=== PATIENT | female | born 1950 | race Caucasian/White ===

== ENCOUNTER 2020-07-07 14:42 | Observation (INO) | payer MEDICARE, OTHER ==
[~2020-07-07 14:42] MED LIST: Iopamidol-370 76% 500 ML 1 ML ONE
--- NOTE | 2020-07-07 15:22 | CT ---
CT OF THE BRAIN WITHOUT CONTRAST: 07/07/20 INDICATION: 69-year-old female with dizziness. COMPARISON: Prior CT of the brain dated 03/09/17. FINDINGS: There has been interval chronic right MCA distribution infarct with encephalomalacia involving portio ns of the right frontal lobe, right insular cortex, and right temporal lobe with ex vacuo dilatation of the anterior horn of the right lateral ventricle. No acute infarct, hemorrhage, or hydrocephalus i s present. Septum pellucidum and third ventricle are midline. There is mild generalized cerebral and cerebellar atrophy. There is partial fusion involving the right mastoid air cells. The visualized par anasal sinuses are clear. The skull is intact. IMPRESSION: 1. Interval right MCA distribution infarct with encephalomalacia. 2. No acute intracranial abnormality. 3. Mild generalized cerebral and cerebellar atrophy. POS: [facility]
[2020-07-07 15:48] LABS: #Basophils 0.1 thou/uL (0.0-0.2); #Eosinphils 0.1 thou/uL (0.0-0.7); #Lymphocytes 1.7 thou/uL (1.20-3.40); #Monocytes 0.9 thou/uL (0.11-0.59); #Neutrophils 5.1 thou/uL (1.40-6.50); %Basophils 0.8 % (0.0-1.0); %Eosinophils 1.2 % (0.0-10.0); %Lymphocytes 22.1 % (21.0-51.0); %Monocytes 10.9 % (0.0-10.0); Hemoglobin 13.3 g/dL (12.0-16.0); Mean Corpuscular HGB CONC 32.2 g/dL (32.0-36.0); Mean Corpuscular Hemoglobin 27.2 pg (27.0-31.0); Mean Corpuscular Volume 84.5 fL (78.0-98.0); Mean Platelet Volume 6.8 fL (7.4-10.4); Platelet Count 332 thou/uL (130-400); RBC Distribution Width 13.8 % (11.5-14.5); Red Blood Cell (RBC) Count 4.87 mill/uL (4.20-5.40); White Blood Cell (WBC) Count 7.8 thou/uL (4.8-10.8)
[2020-07-07] MEDS ORDERED: Meclizine HCl 25 MG TAB ONE (16:01)
[2020-07-07] MEDS ORDERED: Aspirin Chewable 81 MG TAB ONE (16:02)
[2020-07-07 16:06] LABS: ALT (SGPT) 33 U/L (8-55); AST (SGOT) 24 U/L (5-34); Albumin 4.2 g/dL (3.4-4.8); Alkaline Phosphatase 98 U/L (40-110); Anion Gap 12 mmol/L (10-20); BUN (Urea Nitrogen) 13 mg/dL (9.8-20.1); Bilirubin, Total 0.3 mg/dL (0.2-1.2); Calc. Creatinine Clearance 0 mL/min (70-130); Calcium 10.3 mg/dL (7.8-10.44); Carbon Dioxide 25 mmol/L (23-31); Chloride 107 mmol/L (98-107); Estimated GFR-MDRD 81; Globulin 3.2 g/dL (2.4-3.5); Glucose 98 mg/dL (80-115); Potassium 3.7 mmol/L (3.5-5.1); Protein, Total 7.4 g/dL (6.0-8.3); Sodium 140 mmol/L (136-145)
[2020-07-07] MEDS ORDERED: Acetaminophen 650 MG Suppository PR PRN (18:19)
--- NOTE | 2020-07-07 19:07 | PDOC.HHP ---
Hospitalist HPI - History of Present Illness Lightheaded/Dizzy History of Present Illness: PCP: Dr. Serjio Pierce Patient presents with complaints of feeling lightheaded and dizzy when she first got up from bed this morning. Denies any spinning sensation, nausea or vomiting. Reports a mild generalized headache 3/10 on and off throughout the day. No vision or speech changes. Reports long standing weakness in left leg due to knee issues and requires a cane for stability when mobilizing but otherwise denies any weakness. No numbness. Has had a stroke in 2017, s/p TPA for a right MCA infarct. No residual deficits. Patient was alarmed by lightheadedness which prompted her to seek medical attention given her history of stroke. During her hospital stay the patient was diagnosed with bilateral pulmonary emboli and discharged on anticoagulation with Eliquis which she has been compliant with. ROS: She has felt well in recent days. Denies any recent fevers, chills or sweats. No cough or hemoptysis. Denies any sob. No urinary symptoms. Has had a normal appetite. Denies any bowel changes. All other review of systems apart from those mentioned above in HPI are negative. ED COURSE: Per ED notes, patient was noted to have horizontal nystagmus on exam. She had a CT Brain done which showed no acute intracranial abnormalities. She was treated with Meclizine and given Aspirin 324 mg PO x 1. PAST MEDICAL HISTORY: 1. Hypertension. 2. Hyperlipidemia. 3. Morbid obesity. 4. Posterior CVA in 2017, s/p TPA 5. Bilateral PEs. PAST SURGICAL HISTORY: 1. Umbilical hernia repair. SOCIAL HISTORY: She lives with her . She is fully independent with self-care. Sedentary lifestyle. Uses a cane when walking to help with stability. She states she has chronic left knee pain/weakness. No tobacco use or alcohol consumption. FAMILY HISTORY: Noncontributory. ALLERGIES: No known drug allergies. CURRENT MEDICATIONS: 1. Atorvastatin 40 mg PO daily. 2. HCTZ 12.5 mg PO daily. 3. Eliquis 5 mg PO daily. 4. Olmesartan 40 mg PO daily. - Exam General Appearance: NAD, awake alert General - other findings: HR 71, BP 168/90, RR 20, O2 sat 96% on RA, Temp 98.2 Eye: PERRL, anicteric sclera Eye - other findings: no nystagmus present on my examination, EOM intact ENT: normocephalic atraumatic, no oropharyngeal lesions, moist mucosa Neck: supple, no lymphadenopathy Heart: RRR, no murmur, no gallops, normal peripheral pulses Respiratory: CTAB, no wheezes, no rales, no ronchi, normal chest expansion Gastrointestinal: soft, non-tender, non-distended, normal bowel sounds Extremities: no cyanosis, no clubbing, no edema Skin: normal turgor, no lesions, no rashes Neurological: cranial nerve grossly intact, normal sensation to touch, no weakness, no focal deficits Neurological - other findings: power 5/5 in all limbs, sensation intact, no speech deficit or facial weak Musculoskeletal: normal tone, normal strength, no muscle wasting Psychiatric: normal affect, normal behavior, A&O x 3 Hospitalist Results - Labs Result Diagrams: 07/07/20 15:38 07/07/20 15:38 Lab results: WBC 7.8 thou/uL (4.8-10.8) 07/07/20 15:38 Hgb 13.3 g/dL (12.0-16.0) 07/07/20 15:38 Hct 41.1 % (36.0-47.0) 07/07/20 15:38 MCV 84.5 fL (78.0-98.0) 07/07/20 15:38 Plt Count 332 thou/uL (130-400) 07/07/20 15:38 Neutrophils % 65.0 % (42.0-75.0) 07/07/20 15:38 Sodium 140 mmol/L (136-145) 07/07/20 15:38 Potassium 3.7 mmol/L (3.5-5.1) 07/07/20 15:38 Chloride 107 mmol/L (98-107) 07/07/20 15:38 Carbon Dioxide 25 mmol/L (23-31) 07/07/20 15:38 BUN 13 mg/dL (9.8-20.1) 07/07/20 15:38 Creatinine 0.72 mg/dL (0.6-1.1) 07/07/20 15:38 Glucose 98 mg/dL (80-115) 07/07/20 15:38 Calcium 10.3 mg/dL (7.8-10.44) 07/07/20 15:38 Total Bilirubin 0.3 mg/dL (0.2-1.2) 07/07/20 15:38 AST 24 U/L (5-34) 07/07/20 15:38 ALT 33 U/L (8-55) 07/07/20 15:38 Alkaline Phosphatase 98 U/L (40-110) 07/07/20 15:38 Troponin I 0.012 ng/mL (< 0.028) 07/07/20 15:20 Serum Total Protein 7.4 g/dL (6.0-8.3) 07/07/20 15:38 Albumin 4.2 g/dL (3.4-4.8) 07/07/20 15:38 - EKG Interpretation EKG: NSR, HR [address] changes or T wave abnormalities. Hospitalist H&P A/P - Problem (1) Lightheaded Code(s): R42 - DIZZINESS AND GIDDINESS Status: Resolved Assessment and Plan: Vertigo vs. Posterior CVA. Treated with aspirin and meclizine in the ED. CT head without acute changes. CTA head/neck, Echo and Brain MRI ordered. Gentle hydration. Cardiac monitoring. Orthostatic BPs ordered UA/UCx. (2) Horizontal nystagmus Code(s): H55.09 - OTHER FORMS OF NYSTAGMUS Status: Acute Assessment and Plan: Per ED notes noted on exam at initial presentation. Not evident on my exam. No neuro deficits one exam. Given history of CVA, admitted for stroke work-up. Plan as above (MRI, CTA and Echo). Continue neuro checks. PT consulted given long standing weakness/pain in left knee requiring use of cane. Continue Aspirin and Statin. (3) History of CVA (cerebrovascular accident) without residual deficits Status: Acute Assessment and Plan: received TPA with improvement in symptoms (2017). Plan as mentioned above (problem 1 and 2). (4) Personal history of PE (pulmonary embolism) Code(s): Z86.711 - PERSONAL HISTORY OF PULMONARY EMBOLISM Status: Acute Assessment and Plan: Continue Eliquis. (5) Chronic anticoagulation Code(s): Z79.01 - FDC (CURRENT) USE OF ANTICOAGULANTS Status: Acute Assessment and Plan: With Eliquis due to history of bilateral PEs. (6) Hypertension Code(s): I10 - ESSENTIAL (PRIMARY) HYPERTENSION Status: Chronic Assessment and Plan: Monitor BP. Allow for permissive HTN for first 24 hours. (7) Dyslipidemia Code(s): E78.5 - HYPERLIPIDEMIA, UNSPECIFIED Status: Chronic Assessment and Plan: Continue statin. Repeat lipid panel with morning labs. (8) Morbid obesity with BMI of 45.0-49.9, adult Code(s): E66.01 - MORBID (SEVERE) OBESITY DUE TO EXCESS CALORIES; Z68.42 - BODY MASS INDEX (BMI) 45.0-49.9, ADULT Status: Chronic - Plan Plan: GI prophylaxis with Famotidine. DVT Prophylaxis: as mentioned on chronic anticoagulation with Eliquis. CODE STATUS FULL Surrogate decision maker is her Drew Saldivar.
--- NOTE | 2020-07-07 19:48 | CT ---
CT angiogram head CT angiogram neck: 07/07/2020 HISTORY: Dizziness, vertigo, lightheaded TECHNIQUE: Axial CT imaging at 1.25 mm intervals from the vertex through the upper chest with IV cont rast using CT angiogram protocol. Correlation is made to prior CT angiogram of the head and neck performed 03/17/2017 as well as recent head CT performed 07/07/2020 at 3:01 PM FINDINGS: Stable rim calcified hypodensities are noted in the right paratracheal region, which may re flect calcified nodes. The visualized lung apices demonstrate no acute findings. The origin of the innominate artery, right common carotid artery, right subclavian artery, left commo n carotid artery, and left subclavian artery demonstrate no acute findings. The origin of bilateral vertebral arteries appears grossly unremarkable. There is a retropharyngeal course of the distal CCA bilaterally. The left vertebral artery emanates d irectly from the aortic arch. On the basis of NASCET criteria, there is no hemodynamically significant stenosis seen involving the common carotid artery or the internal carotid artery on either side. There is mild calcified plaque involving the distal left CCA and the proximal left ICA. The retroantral fat, parapharyngeal fat, parotid gland, and submandibular gland appears grossly unrem arkable bilaterally. Tonsillar pillars, epiglottis and preepiglottic fat, hyoid bone, thyroid cartilage, cricoid cartilage, and level of the glottis appears unremarkable. The thyroid gland is bennie ssly unremarkable. No lymphadenopathy is appreciated within the neck. The left vertebral artery is hypoplastic. Right vertebral artery is dominant. Bilateral vertebral art eries are patent. The basilar artery and its branches appear patent. There are patent posterior cerebral arteries bilat erally. There is a patent right posterior communicating artery. There is atherosclerotic calcification of the cavernous carotid arteries. The M1 segment, the a 1 seg ment, the distal ANGELA branches, and the distal MCA branches demonstrate no acute findings. There is significant encephalomalacia within the right MCA territory consistent with prior right MCA infarctio n. No anterior or posterior circulation saccular aneurysm, high-grade stenosis, or vascular occlusion noted. Review of the osseous structures demonstrates multilevel cervical spine degenerative change with no w orrisome lytic or blastic bone lesion. IMPRESSION: Chronic/incidental findings as above. No acute findings seen on CT angiogram of the head/ neck.
[2020-07-07 19:58] LABS: Troponin I Less than 0.010 ng/mL (< 0.028)
[2020-07-07 20:35] LABS: Bacteria/HPF None Seen HPF (None Seen); Bilirubin Negative (Negative); Blood, Urine 1+ (Negative); Clarity Clear (Clear); Glucose, Urine (Dipstick) Normal (Negative); Ketone, Urine Negative (Negative); Leukocyte Negative Leu/uL (Negative); Nitrite Negative (Negative); Protein, Urine (Dipstick) Negative (Neg-Trace); Specific Gravity, Urine 1.041 (1.002-1.036); Squamous Epithelial 0-3 HPF (0-3); Urobilinogen Normal mg/dL (Less than 2); WBC/HPF 0-3 HPF (0-3)
[2020-07-07] MEDS ORDERED: Atorvastatin Calcium 40 MG TAB PO SCH (21:00)
[2020-07-07] MEDS: Sodium Chloride 0.9% 1,000 ML IV SCH (21:08)
[2020-07-07] MEDS ORDERED: Famotidine/PF 20 mg/2ml Vial ONE (21:23)
[2020-07-07] MEDS: Famotidine/PF 20 mg/2ml Vial SLOW IVP SCH (21:40)
[2020-07-07 22:07] LABS: Troponin I Less than 0.010 ng/mL (< 0.028)
[2020-07-07 23:50] VITALS: BMI 48.1
[2020-07-08 04:22] LABS: Bacteria/HPF None Seen HPF (None Seen); Bilirubin Negative (Negative); Blood, Urine Trace (Negative); Clarity Clear (Clear); Glucose, Urine (Dipstick) Normal (Negative); Ketone, Urine Negative (Negative); Leukocyte Negative Leu/uL (Negative); Nitrite Negative (Negative); Protein, Urine (Dipstick) Negative (Neg-Trace); RBC/HPF 0-3 HPF (0-3); Specific Gravity, Urine 1.026 (1.002-1.036); Squamous Epithelial 0-3 HPF (0-3); Urobilinogen Normal mg/dL (Less than 2); WBC/HPF 0-3 HPF (0-3)
[2020-07-08 04:25] LABS: Urine Culture Reflex No No
[2020-07-08] MEDS: Acetaminophen 325 MG TAB PO PRN ×2 (04:41→12:09)
[2020-07-08 04:58] LABS: #Basophils 0.1 thou/uL (0.0-0.2); #Eosinphils 0.1 thou/uL (0.0-0.7); #Lymphocytes 1.5 thou/uL (1.20-3.40); #Monocytes 0.6 thou/uL (0.11-0.59); #Neutrophils 3.5 thou/uL (1.40-6.50); %Eosinophils 1.8 % (0.0-10.0); %Lymphocytes 26.6 % (21.0-51.0); %Monocytes 10.3 % (0.0-10.0); %Neutrophils 60.4 % (42.0-75.0); Hemoglobin 13.2 g/dL (12.0-16.0); Mean Corpuscular Volume 84.6 fL (78.0-98.0); Platelet Count 285 thou/uL (130-400); RBC Distribution Width 13.8 % (11.5-14.5); Red Blood Cell (RBC) Count 4.88 mill/uL (4.20-5.40); White Blood Cell (WBC) Count 5.8 thou/uL (4.8-10.8)
[2020-07-08 05:38] LABS: ALT (SGPT) 32 U/L (8-55); AST (SGOT) 23 U/L (5-34); Albumin 3.9 g/dL (3.4-4.8); Alkaline Phosphatase 91 U/L (40-110); Anion Gap 18 mmol/L (10-20); BUN (Urea Nitrogen) 12 mg/dL (9.8-20.1); Bilirubin, Total 0.6 mg/dL (0.2-1.2); Calc. Creatinine Clearance 136 mL/min (70-130); Carbon Dioxide 20 mmol/L (23-31); Cardiac Risk 3.6 (Less than 4.5); Chloride 107 mmol/L (98-107); Cholesterol 160 mg/dl (< 200 Desired); Estimated GFR-MDRD 75; Glucose 98 mg/dL (80-115); HDL Cholesterol 44 mg/dL (>60 Neg Risk); LDL Cholesterol, Calculated 89 mg/dL; Potassium 3.5 mmol/L (3.5-5.1); Protein, Total 6.9 g/dL (6.0-8.3); Sodium 141 mmol/L (136-145); Triglycerides 134 mg/dL (Less than 150)
--- NOTE | 2020-07-08 08:33 | MRI ---
Exam: Brain MRI without contrast HISTORY: Evaluate for CVA. Left-sided weakness and dizziness. COMPARISON: None FINDINGS: Calvarial marrow signal intensity: Appropriate T1 signal Gradient echo sequence: Hemosiderin deposition secondary to remote insult involving the right deep gr ay matter structures. Brain parenchyma: Encephalomalacia and gliosis involving previous right MCA distribution insult. Left cerebrum demonstrates preservation of cortical cordon-white white matter differentiation. Cortical cordon-white matter differentiation: Preserved the left cerebrum. Restricted diffusion: Central arterial flow voids are maintained. Absent restricted diffusion White matter signal intensities:T2 and FLAIR white matter hyperintensities due to chronic small vesse l ischemic change as well as right cerebral gliosis. Sinuses: Adequate aeration of the paranasal sinuses and mastoid air cells. IMPRESSION: 1. Absent restricted diffusion. No acute infarct 2. Changes compatible with previous right MCA distribution infarct in resultant encephalomalacia/glio sis.
[2020-07-08] MEDS ORDERED: Aspirin 81 mg Enteric Coated Tablet PO SCH (09:00)
[2020-07-08] MEDS ORDERED: Hydrochlorothiazide 25 MG TAB PO SCH (09:00)
[2020-07-08] MEDS: Famotidine/PF 20 mg/2ml Vial SLOW IVP SCH (11:53)
[2020-07-08] MEDS ORDERED: Losartan 25 MG TAB PO SCH (12:30)
[2020-07-08 12:47] LABS: SARS-CoV-2 MS2 Positive; SARS-CoV-2 N Gene Negative; SARS-CoV-2 S Gene Negative; SARS-CoV-2 by NAA Not Detected (NotDetected); SARS-CoV-2 orf1ab Negative
[2020-07-08 15:41] VITALS: TEMP 98.1
[2020-07-08 16:00] VITALS: BP 133/80
[2020-07-08] MEDS: Sodium Chloride 0.9% 1,000 ML IV SCH (17:02)
--- NOTE | 2020-07-09 04:45 | DIS ---
DATE OF ADMISSION: 07/07/2020 DATE OF DISCHARGE: 07/08/2020 DISCHARGE DIAGNOSES: Vertigo HISTORY: Patient is a 69-year-old female with past medical history of hypertension; hyperlipidemia; and a posterior CVA in 2017 for which she received tPA, and bilateral pulmonary embolisms. She presented to the emergency department for concerns of feeling lightheaded and dizzy when she got out from bed this morning. Denied any spinning sensation, nausea, or vomiting. Reported also mild generalized headache on and off throughout the day. No vision or speech changes were noted. She reports having had a stroke in 2017 in which she received tPA for right MCA infarct. She reports the symptoms she was having was concerning and similar to that in presentation of her MCA infarct and thus she presented to the emergency department. The patient received a CT in the emergency department which was without acute findings. Plan to repeat the MRI while she is in the hospital which showed no acute infarct. She also received an echo while she was in the hospital which showed an ejection fraction of 60% to 65%. The patient report improvement of her symptoms during hospitalization. PHYSICAL EXAMINATION: GENERAL: On exam, the patient was resting comfortably in bed. She denied any headaches or dizziness. HEART: Regular rate and rhythm. LUNGS: Clear to auscultation bilaterally. ABDOMEN: Soft, nontender, nondistended. EXTREMITIES: She had no edema of her bilateral lower extremities. ACTIVITIES: As tolerated. DIET: Heart healthy diet. DISCHARGE MEDICATIONS: No new medications were started. She was to resume her hydrochlorothiazide 12.5 mg daily, atorvastatin 20 mg, Benicar 40 mg, apixaban 5 mg b.i.d., aspirin 81 mg daily. FOLLOWUP: Patient was instructed to follow up with her PCP within 3 days. The patient was stable and discharged to home. Return precautions were given. Total time spent on discharge of the patient was greater than 30 minutes. Job ID: [id number] [facility]
[2020-07-09] MEDS ORDERED: Losartan 25 MG TAB PO SCH (09:00)
--- NOTE | 2020-07-12 16:59 | CT ---
Addendum: CT angiogram of the head and neck performed with 3-D reformatted imaging Reported By: Donato Ribeiro by Donato Ribeiro. CT angiogram head CT angiogram neck: 07/07/2020 HISTORY: Dizziness, vertigo, lightheaded TECHNIQUE: Axial CT imaging at 1.25 mm intervals from the vertex through the upper chest with IV cont rast using CT angiogram protocol. Correlation is made to prior CT angiogram of the head and neck performed 03/17/2017 as well as recent head CT performed 07/07/2020 at 3:01 PM FINDINGS: Stable rim calcified hypodensities are noted in the right paratracheal region, which may re flect calcified nodes. The visualized lung apices demonstrate no acute findings. The origin of the innominate artery, right common carotid artery, right subclavian artery, left commo n carotid artery, and left subclavian artery demonstrate no acute findings. The origin of bilateral vertebral arteries appears grossly unremarkable. There is a retropharyngeal course of the distal CCA bilaterally. The left vertebral artery emanates d irectly from the aortic arch. On the basis of NASCET criteria, there is no hemodynamically significant stenosis seen involving the common carotid artery or the internal carotid artery on either side. There is mild calcified plaque involving the distal left CCA and the proximal left ICA. The retroantral fat, parapharyngeal fat, parotid gland, and submandibular gland appears grossly unrem arkable bilaterally. Tonsillar pillars, epiglottis and preepiglottic fat, hyoid bone, thyroid cartilage, cricoid cartilage, and level of the glottis appears unremarkable. The thyroid gland is bennie ssly unremarkable. No lymphadenopathy is appreciated within the neck. The left vertebral artery is hypoplastic. Right vertebral artery is dominant. Bilateral vertebral art eries are patent. The basilar artery and its branches appear patent. There are patent posterior cerebral arteries bilat erally. There is a patent right posterior communicating artery. There is atherosclerotic calcification of the cavernous carotid arteries. The M1 segment, the a 1 seg ment, the distal ANGELA branches, and the distal MCA branches demonstrate no acute findings. There is significant encephalomalacia within the right MCA territory consistent with prior right MCA infarctio n. No anterior or posterior circulation saccular aneurysm, high-grade stenosis, or vascular occlusion noted. Review of the osseous structures demonstrates multilevel cervical spine degenerative change with no w orrisome lytic or blastic bone lesion. IMPRESSION: Chronic/incidental findings as above. No acute findings seen on CT angiogram of the head/ neck. Transcribed Date/Time: 07/12/2020 4:59 PM
== END 2020-07-08 18:00 | disposition home or self-care (01) ==
LOC: ERS 14:42 → ERHOLD 17:46 → 2SE 22:45
PROVIDERS: ADMIT Student in an Organized Health Care Education/Training Program; ATTEND Student in an Organized Health Care Education/Training Program
DX: R42 Dizziness and giddiness (principal); R51 Headache; I10 Essential (primary) hypertension; E78.5 Hyperlipidemia, unspecified; G89.29 Other chronic pain; M25.562 Pain in left knee; H55.09 Other forms of nystagmus; I65.22 Occlusion and stenosis of left carotid artery; E66.01 Morbid (severe) obesity due to excess calories; Z68.42 Body mass index [BMI] 45.0-49.9, adult; Z86.711 Personal history of pulmonary embolism; Z86.73 Personal history of transient ischemic attack (TIA), and cerebral infarction without residual deficits; Z79.01 Long term (current) use of anticoagulants; Z79.899 Other long term (current) drug therapy; Z20.828 Contact with and (suspected) exposure to other viral communicable diseases
CPT/HCPCS: 70450; 70496; 70498; 70551; 80053; 80061; 81001; 83735; 83880; 84484 ×2; 85025; 93005; 93306; 97139 ×3; 99285; U0003; 36415; 81003; 81015; 84443; 87635; 96374; 96376; G0378; Q9967; S0028

== ENCOUNTER 2020-12-26 09:52 | Outpatient (CLI) | payer MEDICARE | END 2020-12-26 09:53 | disposition home or self-care (01) | LOC: BICMAMMO 09:52 | PROVIDERS: ATTEND Family Medicine | DX: Z12.31 Encounter for screening mammogram for malignant neoplasm of breast (principal); Z91.89 Other specified personal risk factors, not elsewhere classified | CPT/HCPCS: 77063; 77067 ==

== ENCOUNTER 2023-07-08 13:11 | Emergency (ER) | payer MEDICARE ==
[2023-07-08 14:59] LABS: #Basophils 0.1 thou/uL (0.0-0.2); #Eosinphils 0.1 thou/uL (0.0-0.7); #Monocytes 0.7 thou/uL (0.11-0.59); #Neutrophils 7.3 thou/uL (1.40-6.50); %Basophils 0.5 % (0.0-1.0); %Lymphocytes 18.7 % (21.0-51.0); %Monocytes 7.2 % (0.0-10.0); %Neutrophils 72.3 % (42.0-75.0); Hemoglobin 14.1 g/dL (12.0-16.0); Mean Corpuscular Hemoglobin 26.4 pg (27.0-31.0); Mean Corpuscular Volume 82.4 fl (78.0-98.0); Mean Platelet Volume 8.6 fL (7.4-10.4); Platelet Count 318 10x3/uL (130-400); RBC Distribution Width 15.2 % (11.5-14.5); Red Blood Cell (RBC) Count 5.34 mill/uL (4.20-5.40); White Blood Cell (WBC) Count 10.1 10x3/uL (4.8-10.8)
[2023-07-08 15:18] LABS: ALT (SGPT) 22 U/L (8-55); AST (SGOT) 22 U/L (5-34); Albumin 4.2 g/dL (3.4-4.8); Alkaline Phosphatase 121 U/L (40-110); Anion Gap 18 mmol/L (10-20); BUN (Urea Nitrogen) 8 mg/dL (9.8-20.1); Bilirubin, Total 0.4 mg/dL (0.2-1.2); Calc. Creatinine Clearance 0 mL/min (70-130); Carbon Dioxide 20 mmol/L (23-31); Chloride 101 mmol/L (98-107); Estimated GFR 76; Globulin 4.3 g/dL (2.4-3.5); Glucose 87 mg/dL (83-110); Potassium 3.5 mmol/L (3.5-5.1); Protein, Total 8.5 g/dL (5.8-8.1); Sodium 135 mmol/L (136-145)
== END 2023-07-08 18:18 | disposition home or self-care (01) ==
LOC: ERS 13:11
DX: L03.311 Cellulitis of abdominal wall (principal); I10 Essential (primary) hypertension; E66.9 Obesity, unspecified; Z79.899 Other long term (current) drug therapy; Z79.01 Long term (current) use of anticoagulants
CPT/HCPCS: 36415; 80053; 83605; 85025; 96360

== ENCOUNTER 2024-07-27 12:39 | Emergency (ER) | payer MEDICARE ==
[2024-07-27] MEDS ORDERED: Piperacillin/Tazobactam 4.5 GM VIAL ONE ×2 (14:36→14:47)
[2024-07-27] MEDS ORDERED: Sodium Chloride 0.9% 100 ML ONE ×2 (14:37→14:47)
[2024-07-27 14:59] LABS: Hemoglobin 8.9 g/dL (12.0-16.0); Mean Corpuscular Hemoglobin 25.4 pg (27.0-31.0); Mean Corpuscular Volume 77.1 fL (78.0-98.0); Mean Platelet Volume 9.3 fL (7.4-10.4); Platelet Count 312 10x3/uL (130-400); RBC Distribution Width 16.3 % (11.5-14.5)
[2024-07-27] MEDS ORDERED: Vancomycin (BATCH) 2.5 GM in Premix 1 BAG IVPB SCH (15:00)
[2024-07-27 15:13] LABS: INR-International Normal Ratio 2.3; PTT 43.3 sec (22.9-36.1); Prothrombin Time 25.1 sec (12.0-14.7)
[2024-07-27 15:17] LABS: Band 21 % (5-11); Eosinophils 2 % (0-10); Lymphocytes 1 % (21-51); Monocytes 7 % (0-10); Neutrophil 70 % (42-75); Platelet Adequacy Comment Platelets Normal; Polychromasia SLIGHT = 2-3 cells HPF (0-2)
[2024-07-27 15:22] LABS: Troponin I 0.043 ng/mL (< 0.028)
[2024-07-27 15:24] LABS: ALT (SGPT) 46 U/L (8-55); AST (SGOT) 31 U/L (5-34); Albumin 2.3 g/dL (3.4-4.8); Alkaline Phosphatase 198 U/L (40-110); Anion Gap 15 mmol/L (10-20); BUN (Urea Nitrogen) 39 mg/dL (9.8-20.1); Calc. Creatinine Clearance 0 mL/min (70-130); Calcium 9.4 mg/dL (7.8-10.44); Carbon Dioxide 21 mmol/L (23-31); Chloride 99 mmol/L (98-107); Estimated GFR 24; Globulin 3.9 g/dL (2.4-3.5); Glucose 86 mg/dL (83-110); Lipase 15 U/L (8-78); Magnesium 1.9 mg/dL (1.6-2.6); Potassium 2.6 mmol/L (3.5-5.1); Protein, Total 6.2 g/dL (5.8-8.1); Sodium 132 mmol/L (136-145)
[2024-07-27] MEDS ORDERED: Potassium Chloride 20 MEQ TAB ONE (16:03)
[2024-07-27] MEDS ORDERED: NOREPINEPHRINE 8 MG/250 ML-D5W 250 ML ONE (16:03)
[2024-07-27 16:34] LABS: Bacteria/HPF 4+ HPF (None Seen); Bilirubin Negative (Negative); Blood, Urine 1+ (Negative); CAUTI Indications for Culture Pelvic or flank pain; Clarity Turbid (Clear); Glucose, Urine (Dipstick) Normal (Negative); Ketone, Urine Negative (Negative); Leukocyte 500 Leu/uL (Negative); Nitrite Negative (Negative); Protein, Urine (Dipstick) 20 mg/dL (Neg-Trace); RBC/HPF 0-3 HPF (0-3); Specific Gravity, Urine 1.011 (1.002-1.036); WBC/HPF 21-50 HPF (0-3)
[2024-07-27 16:35] LABS: Urine Culture Reflex Yes Yes
== END 2024-07-28 00:59 | disposition short-term general hospital (02) ==
LOC: ERS 12:39
DX: A41.9 Sepsis, unspecified organism (principal); I95.9 Hypotension, unspecified; E87.6 Hypokalemia; L08.9 Local infection of the skin and subcutaneous tissue, unspecified; N39.0 Urinary tract infection, site not specified; I10 Essential (primary) hypertension
CPT/HCPCS: 70450; 71045; 71250; 74176; 81001; 83605; 83690; 83735; 83880; 84484; 85610; 85730; 87040; 87077; 87086; 87149 ×2; 87186; 93005; 93970; J2543; J3370; 36415; 36416; 80053; 84443; 85025; 96361; 96365; 96366; 96367

== ENCOUNTER 2024-09-21 11:13 | Inpatient (IN) | payer MEDICARE ==
[2024-09-21 12:02] LABS: #Basophils 0.03 10x3/uL (0.0-0.2); %Basophils 0.4 % (0.0-1.0); %Lymphocytes 15.8 % (21.0-51.0); %Monocytes 8.5 % (0.0-10.0); %Neutrophils 73.6 % (42.0-75.0); Hematocrit 30.2 % (36.0-47.0); Hemoglobin 9.7 g/dL (12.0-16.0); Mean Corpuscular HGB CONC 32.1 g/dL (32.0-36.0); Mean Corpuscular Hemoglobin 24.9 pg (27.0-31.0); Mean Corpuscular Volume 77.4 fL (78.0-98.0); Mean Platelet Volume 7.9 fL (7.4-10.4); Platelet Count 486 10x3/uL (130-400); RBC Distribution Width 18.1 % (11.5-14.5)
[2024-09-21 12:20] LABS: ALT (SGPT) 19 U/L (8-55); AST (SGOT) 17 U/L (5-34); Albumin 2.9 g/dL (3.4-4.8); Alkaline Phosphatase 195 U/L (40-110); Anion Gap 14 mmol/L (10-20); BUN (Urea Nitrogen) 13 mg/dL (9.8-20.1); Bilirubin, Total 0.7 mg/dL (0.2-1.2); Calc. Creatinine Clearance 0 mL/min (70-130); Calcium 10.1 mg/dL (7.8-10.44); Carbon Dioxide 25 mmol/L (23-31); Chloride 98 mmol/L (98-107); Estimated GFR 78; Glucose 101 mg/dL (83-110); Protein, Total 7.9 g/dL (5.8-8.1); Sodium 134 mmol/L (136-145)
[2024-09-21 13:09] LABS: INR-International Normal Ratio 1.5; Prothrombin Time 18.5 sec (12.0-14.7)
[2024-09-21 13:10] LABS: PTT 44.5 sec (22.9-36.1)
[2024-09-21 13:12] LABS: D-Dimer Test 2.62 mcg/mL (0.27-0.43)
[2024-09-21] MEDS ORDERED: Ondansetron ODT 4 MG TAB PO PRN (13:35)
[2024-09-21] MEDS ORDERED: Famotidine 20 MG TAB PO PRN (13:35)
[2024-09-21] MEDS ORDERED: Senokot S 8.6-50 MG TAB PO PRN (13:35)
[2024-09-21] MEDS ORDERED: Heparin 25,000 units/D5W 500 ML ONE (14:29)
[2024-09-21] MEDS ORDERED: Heparin 5,000 UNITS/ML VIAL ONE ×2 (14:29→14:32)
[2024-09-21] MEDS ORDERED: Potassium Chloride 20 MEQ TAB ONE (14:29)
[2024-09-21] MEDS ORDERED: traMADol HCl 50 MG TAB PO PRN (16:53)
[2024-09-21 18:25] VITALS: BMI 45.7
[2024-09-21] MEDS: Famotidine 20 MG TAB PO SCH (21:15)
[2024-09-21] MEDS: Atorvastatin Calcium 20 MG TAB PO SCH (21:15)
[2024-09-21] MEDS: levETIRAcetam 500 MG TAB PO SCH (21:15)
[2024-09-21] MEDS: traMADol HCl 50 MG TAB PO SCH (21:15)
[2024-09-21] MEDS: Docusate 100 MG CAP PO SCH (21:16)
[2024-09-21] MEDS: Melatonin 3 MG TAB PO SCH (21:16)
[2024-09-21] MEDS: FLUoxetine HCl 20 MG CAP PO SCH (21:16)
[2024-09-21] MEDS: Senokot S 8.6-50 MG TAB PO SCH (21:16)
[2024-09-21 21:56] LABS: PTT Greater than 250.0 sec (22.9-36.1)
[2024-09-22 06:18] LABS: #Basophils 0.03 10x3/uL (0.0-0.2); %Basophils 0.4 % (0.0-1.0); %Lymphocytes 22.2 % (21.0-51.0); %Monocytes 11.8 % (0.0-10.0); %Neutrophils 62.9 % (42.0-75.0); Hematocrit 28.2 % (36.0-47.0); Hemoglobin 9.1 g/dL (12.0-16.0); Mean Corpuscular HGB CONC 32.3 g/dL (32.0-36.0); Mean Corpuscular Hemoglobin 24.7 pg (27.0-31.0); Mean Corpuscular Volume 76.6 fL (78.0-98.0); Mean Platelet Volume 8.7 fL (7.4-10.4); Platelet Count 480 10x3/uL (130-400); RBC Distribution Width 18.1 % (11.5-14.5); Red Blood Cell (RBC) Count 3.68 mill/uL (4.20-5.40)
[2024-09-22 06:40] LABS: Anion Gap 13 mmol/L (10-20); BUN (Urea Nitrogen) 11 mg/dL (9.8-20.1); Calc. Creatinine Clearance 114 mL/min (70-130); Calcium 9.5 mg/dL (7.8-10.44); Carbon Dioxide 24 mmol/L (23-31); Chloride 99 mmol/L (98-107); Estimated GFR 79; Glucose 100 mg/dL (83-110); Potassium 2.8 mmol/L (3.5-5.1); Sodium 133 mmol/L (136-145)
[2024-09-22] MEDS ORDERED: Heparin 10,000 UNITS/ 10 ML VIAL SLOW IVP SCH (07:15)
[2024-09-22] MEDS: Potassium Chloride 20 MEQ TAB PO SCH ×2 (08:21→10:18)
[2024-09-22] MEDS: Polyethylene Glycol 3350 17 GM Packet PO SCH (08:21)
[2024-09-22] MEDS: CO Q-10 CAPSULE 100 MG PO SCH (08:26)
[2024-09-22] MEDS: Hydrochlorothiazide 25 MG TAB PO SCH (08:29)
[2024-09-22] MEDS: NIFEdipine XL 60 MG ER.TAB PO SCH (08:29)
[2024-09-22] MEDS: Potassium Chloride 20 MEQ in Premix 1 BAG IVPB SCH (11:49)
[2024-09-22] MEDS: Heparin 25,000 units/D5W 500 ML IVPB SCH (12:32)
[2024-09-22 13:27] VITALS: BMI 45.7
[2024-09-22] MEDS: HYDROcodone/Acetaminophen 5/325 mg Tablet PO PRN (17:22)
[2024-09-23 01:22] LABS: PTT 136.6 sec (22.9-36.1)
[2024-09-23 05:54] LABS: #Basophils Less than 0.03 10x3/uL (0.0-0.2); %Basophils 0.2 % (0.0-1.0); %Lymphocytes 20.9 % (21.0-51.0); %Monocytes 11.1 % (0.0-10.0); %Neutrophils 65.2 % (42.0-75.0); Hemoglobin 9.1 g/dL (12.0-16.0); Mean Corpuscular HGB CONC 31.4 g/dL (32.0-36.0); Mean Corpuscular Hemoglobin 24.6 pg (27.0-31.0); Mean Corpuscular Volume 78.4 fL (78.0-98.0); Mean Platelet Volume 8.6 fL (7.4-10.4); Platelet Count 459 10x3/uL (130-400); RBC Distribution Width 18.3 % (11.5-14.5)
[2024-09-23 06:11] LABS: Anion Gap 14 mmol/L (10-20); BUN (Urea Nitrogen) 9 mg/dL (9.8-20.1); Calc. Creatinine Clearance 114 mL/min (70-130); Carbon Dioxide 20 mmol/L (23-31); Chloride 106 mmol/L (98-107); Estimated GFR 79; Glucose 88 mg/dL (83-110); Magnesium 1.6 mg/dL (1.6-2.6); Potassium 3.9 mmol/L (3.5-5.1); Sodium 136 mmol/L (136-145)
[2024-09-23 20:42] LABS: Hematocrit 28.6 % (36.0-47.0); Platelet Count 443 10x3/uL (130-400)
[2024-09-23] MEDS: Enoxaparin 120 MG/0.8 ML SYRINGE SC SCH (21:16)
[2024-09-24 05:38] LABS: #Basophils Less than 0.03 10x3/uL (0.0-0.2); %Basophils 0.3 % (0.0-1.0); %Eosinophils 2.3 % (0.0-10.0); %Lymphocytes 24.6 % (21.0-51.0); %Monocytes 11.2 % (0.0-10.0); %Neutrophils 61.1 % (42.0-75.0); Hematocrit 28.4 % (36.0-47.0); Mean Corpuscular HGB CONC 31.7 g/dL (32.0-36.0); Mean Corpuscular Hemoglobin 24.6 pg (27.0-31.0); Mean Corpuscular Volume 77.6 fL (78.0-98.0); Mean Platelet Volume 8.5 fL (7.4-10.4); Platelet Count 449 10x3/uL (130-400); RBC Distribution Width 18.1 % (11.5-14.5); Red Blood Cell (RBC) Count 3.66 mill/uL (4.20-5.40)
[2024-09-24 06:25] LABS: Anion Gap 13 mmol/L (10-20); BUN (Urea Nitrogen) 9 mg/dL (9.8-20.1); Calc. Creatinine Clearance 121 mL/min (70-130); Calcium 9.5 mg/dL (7.8-10.44); Carbon Dioxide 23 mmol/L (23-31); Chloride 105 mmol/L (98-107); Estimated GFR 85; Glucose 87 mg/dL (83-110); Iron 30 ug/dL (50-170); Iron Binding Capacity, Total 226 mcg/dL (265-497); Potassium 3.7 mmol/L (3.5-5.1); Sodium 137 mmol/L (136-145)
[2024-09-24 06:30] LABS: Iron 28 ug/dL (50-170); Iron Binding Capacity, Total 228 mcg/dL (265-497)
[2024-09-24] MEDS: Acetaminophen 325 MG TAB PO PRN (13:50)
[2024-09-24] MEDS: Communication Order-Pharmacy FS ONE (19:25)
[2024-09-25 05:00] LABS: #Basophils Less than 0.03 10x3/uL (0.0-0.2); %Basophils 0.3 % (0.0-1.0); %Monocytes 11.2 % (0.0-10.0); Hematocrit 30.7 % (36.0-47.0); Hemoglobin 9.6 g/dL (12.0-16.0); Mean Corpuscular HGB CONC 31.3 g/dL (32.0-36.0); Mean Corpuscular Hemoglobin 24.8 pg (27.0-31.0); Mean Corpuscular Volume 79.3 fL (78.0-98.0); Mean Platelet Volume 8.4 fL (7.4-10.4); Platelet Count 446 10x3/uL (130-400); RBC Distribution Width 18.6 % (11.5-14.5); Red Blood Cell (RBC) Count 3.87 mill/uL (4.20-5.40)
[2024-09-25 05:11] LABS: Anion Gap 15 mmol/L (10-20); BUN (Urea Nitrogen) 9 mg/dL (9.8-20.1); Calc. Creatinine Clearance 120 mL/min (70-130); Carbon Dioxide 22 mmol/L (23-31); Chloride 105 mmol/L (98-107); Estimated GFR 84; Glucose 86 mg/dL (83-110); Potassium 3.7 mmol/L (3.5-5.1); Sodium 138 mmol/L (136-145)
[2024-09-26 05:13] LABS: Hematocrit 31.9 % (36.0-47.0); Hemoglobin 9.9 g/dL (12.0-16.0); Platelet Count 418 10x3/uL (130-400)
[2024-09-26 06:13] VITALS: BP 135/83; TEMP 97.7
== END 2024-09-26 06:10 | disposition home or self-care (01) | DRG 300 ==
LOC: ERS 11:13 → MSONC 16:05
PROVIDERS: ADMIT Family Medicine; ATTEND Internal Medicine
DX: I82.412 Acute embolism and thrombosis of left femoral vein (principal); E87.1 Hypo-osmolality and hyponatremia; Z68.42 Body mass index [BMI] 45.0-49.9, adult; K43.9 Ventral hernia without obstruction or gangrene; I10 Essential (primary) hypertension; E78.5 Hyperlipidemia, unspecified; E66.01 Morbid (severe) obesity due to excess calories; D64.9 Anemia, unspecified; E87.6 Hypokalemia; F41.9 Anxiety disorder, unspecified; Z87.891 Personal history of nicotine dependence; Z86.73 Personal history of transient ischemic attack (TIA), and cerebral infarction without residual deficits; Z88.1 Allergy status to other antibiotic agents; Z98.890 Other specified postprocedural states; Z86.711 Personal history of pulmonary embolism; Z79.899 Other long term (current) drug therapy
CPT/HCPCS: 36415; 80048; 80053; 82728; 83540; 83550; 83735; 83880; 85014; 85018; 85025; 85049; 85379; 85610; 85730; 94760; 96374; 97139; J1644; J1650; J3480

== ENCOUNTER 2024-11-03 13:16 | Outpatient (CLI) | payer MEDICARE | END 2024-11-03 13:17 | disposition home or self-care (01) | LOC: BICCT 13:16 | PROVIDERS: ATTEND Family Medicine | DX: I60.9 Nontraumatic subarachnoid hemorrhage, unspecified (principal); I63.9 Cerebral infarction, unspecified | CPT/HCPCS: 70450 ==

== ENCOUNTER 2025-04-22 13:30 | Inpatient (IN) | payer MEDICARE ==
[2025-04-26] MEDS ORDERED: Acetaminophen 325 MG TAB ONE (11:16)
[2025-04-26] MEDS ORDERED: Heparin 5,000 UNITS/ML VIAL ONE (11:16)
[2025-04-26] MEDS ORDERED: fentaNYL PF 100 MCG/2 ML SYRINGE ONE ×4 (12:56→17:59)
[2025-04-26] MEDS ORDERED: Rocuronium Bromide 10 MG/ML (10ML VIAL) ONE (12:56)
[2025-04-26] MEDS ORDERED: PROPOFOL 20 ML ONE (12:57)
[2025-04-26] MEDS ORDERED: CEFAZOLIN 2 GM VIAL ONE (12:59)
[2025-04-26] MEDS ORDERED: Bupivacaine 0.25% HCL 30 ML VIAL ONE (12:59)
[2025-04-26] MEDS ORDERED: PHENYLEPHRINE-NS 100 MCG/ML 10 ML SYRINGE ONE (14:50)
[2025-04-26] MEDS ORDERED: Ondansetron PF 4 MG/2 ML Vial ONE (15:48)
[2025-04-26] MEDS ORDERED: Ketamine In 0.9 % NaCl 50 MG/5 ML SYRINGE ONE (15:50)
[2025-04-26] MEDS ORDERED: SUGAMMADEX SODIUM 200 MG/2 ML VIAL ONE ×2 (15:50→16:20)
[2025-04-26] MEDS ORDERED: Ondansetron PF 4 MG/2 ML Vial IVP PRN (16:43)
[2025-04-26] MEDS ORDERED: HYDROmorphone 0.5 MG/0.5 ML SYRINGE ONE ×4 (17:08→17:46)
[2025-04-26] MEDS: Acetaminophen 325 MG TAB PO SCH (18:19)
[2025-04-26] MEDS: D5 1/2 NS w/20 mEq KCL 1,000 ML IV SCH (19:56)
[2025-04-26] MEDS: Senokot S 8.6-50 MG TAB PO SCH (19:59)
[2025-04-26] MEDS: Famotidine 20 MG TAB PO SCH (19:59)
[2025-04-27 05:46] LABS: #Basophils 0.03 10x3/uL (0.0-0.2); #Eosinophils Less than 0.03 10x3/uL (0.0-0.7); #Monocytes 1.61 10x3/uL (0.11-0.59); #Neutrophils 14.84 10x3/uL (1.40-6.50); %Basophils 0.2 % (0.0-1.0); %Eosinophils 0.0 % (0.0-10.0); %Lymphocytes 4.4 % (21.0-51.0); %Monocytes 9.3 % (0.0-10.0); %Neutrophils 85.6 % (42.0-75.0); Hematocrit 44.2 % (36.0-47.0); Hemoglobin 14.3 g/dL (12.0-16.0); Mean Corpuscular Hemoglobin 28.8 pg (27.0-31.0); Mean Corpuscular Volume 89.1 fL (78.0-98.0); Platelet Count 320 10x3/uL (130-400); Red Blood Cell (RBC) Count 4.96 mill/uL (4.20-5.40); White Blood Cell (WBC) Count 17.32 10x3/uL (4.8-10.8)
[2025-04-27 06:11] LABS: Anion Gap 15 mmol/L (10-20); BUN (Urea Nitrogen) 14 mg/dL (9.8-20.1); Calc. Creatinine Clearance 128 mL/min (70-130); Calcium 9.8 mg/dL (7.8-10.44); Carbon Dioxide 22 mmol/L (23-31); Chloride 104 mmol/L (98-107); Glucose 146 mg/dL (83-110); Potassium 3.7 mmol/L (3.5-5.1); Sodium 137 mmol/L (136-145)
[2025-04-27] MEDS: Enoxaparin 40 MG (0.4 mL) SYRINGE SC SCH (09:23)
[2025-04-27] MEDS: NIFEdipine XL 60 MG ER.TAB PO SCH (09:24)
[2025-04-27] MEDS: Milk Of Magnesia 30 ML UDCUP PO SCH (20:48)
[2025-04-29 06:13] LABS: Hematocrit 39.2 % (36.0-47.0); Hemoglobin 12.7 g/dL (12.0-16.0); Mean Corpuscular Hemoglobin 28.8 pg (27.0-31.0); Mean Corpuscular Volume 88.9 fL (78.0-98.0); Platelet Count 269 10x3/uL (130-400); Red Blood Cell (RBC) Count 4.41 mill/uL (4.20-5.40); White Blood Cell (WBC) Count 15.00 10x3/uL (4.8-10.8)
[2025-04-29 06:39] LABS: Anion Gap 12 mmol/L (10-20); BUN (Urea Nitrogen) 9 mg/dL (9.8-20.1); Calc. Creatinine Clearance 164 mL/min (70-130); Calcium 10.5 mg/dL (7.8-10.44); Carbon Dioxide 25 mmol/L (23-31); Chloride 101 mmol/L (98-107); Glucose 147 mg/dL (83-110); Potassium 3.4 mmol/L (3.5-5.1); Sodium 135 mmol/L (136-145)
[2025-04-30] MEDS: D5 1/2 NS w/20 mEq KCL 1,000 ML IV SCH (05:51)
[2025-05-01 07:17] LABS: Hematocrit 39.2 % (36.0-47.0); Hemoglobin 12.9 g/dL (12.0-16.0); Mean Corpuscular Hemoglobin 28.4 pg (27.0-31.0); Mean Corpuscular Volume 86.2 fL (78.0-98.0); Platelet Count 338 10x3/uL (130-400); Red Blood Cell (RBC) Count 4.55 mill/uL (4.20-5.40); White Blood Cell (WBC) Count 13.91 10x3/uL (4.8-10.8)
[2025-05-01 08:00] LABS: Anion Gap 13 mmol/L (10-20); BUN (Urea Nitrogen) 9 mg/dL (9.8-20.1); Calc. Creatinine Clearance 190 mL/min (70-130); Calcium 10.0 mg/dL (7.8-10.44); Carbon Dioxide 26 mmol/L (23-31); Chloride 99 mmol/L (98-107); Glucose 141 mg/dL (83-110); Potassium 2.8 mmol/L (3.5-5.1); Sodium 135 mmol/L (136-145)
[2025-05-01] MEDS ORDERED: Electrolyte Replacement Protocol 1 EACH FS SCH (12:15)
[2025-05-01] MEDS: Potassium Bicarbonate/Cit Ac 20 MEQ TAB PO SCH (13:54)
[2025-05-01 18:41] LABS: Actual Bicarbonate (HCO3a) 28.7 mEq/L (22-28); Base Excess (BEa) 5.9 mEq/L (-2.0 to +3.0); CO2 Tension 35.6 mmHg (35.0-45.0); Calcium, Ionized (arterial) 1.28 mmol/L (1.12-1.30); Hematocrit-ABG 39 % (36.0-47.0); Hemoglobin (Hb) 13.4 g/dL (12.0-16.0); Potassium - ABG Lab 3.14 mmol/L (3.70-5.30); pH, Arterial 7.525 (7.35-7.45)
[2025-05-02 03:59] LABS: Hematocrit 35.6 % (36.0-47.0); Hemoglobin 11.8 g/dL (12.0-16.0); Mean Corpuscular Hemoglobin 29.0 pg (27.0-31.0); Mean Corpuscular Volume 87.5 fL (78.0-98.0); Platelet Count 332 10x3/uL (130-400); Red Blood Cell (RBC) Count 4.07 mill/uL (4.20-5.40); White Blood Cell (WBC) Count 12.99 10x3/uL (4.8-10.8)
[2025-05-02 04:15] LABS: Anion Gap 14 mmol/L (10-20); BUN (Urea Nitrogen) 8 mg/dL (9.8-20.1); Calc. Creatinine Clearance 161 mL/min (70-130); Calcium 9.6 mg/dL (7.8-10.44); Carbon Dioxide 26 mmol/L (23-31); Chloride 97 mmol/L (98-107); Glucose 110 mg/dL (83-110); Potassium 3.2 mmol/L (3.5-5.1); Sodium 134 mmol/L (136-145)
[2025-05-02] MEDS: Potassium Chloride 20 MEQ in Premix 1 BAG IVPB SCH (05:44)
[2025-05-03 04:57] LABS: Hematocrit 34.4 % (36.0-47.0); Hemoglobin 11.4 g/dL (12.0-16.0); Mean Corpuscular Hemoglobin 28.9 pg (27.0-31.0); Mean Corpuscular Volume 87.1 fL (78.0-98.0); Platelet Count 344 10x3/uL (130-400); Red Blood Cell (RBC) Count 3.95 mill/uL (4.20-5.40); White Blood Cell (WBC) Count 11.22 10x3/uL (4.8-10.8)
[2025-05-03 05:16] LABS: ALT (SGPT) 18 U/L (Less than 34); AST (SGOT) 19 U/L (11-34); Albumin 2.1 g/dL (3.1-4.5); Alkaline Phosphatase 189 U/L (40-110); Anion Gap 12 mmol/L (10-20); BUN (Urea Nitrogen) 8 mg/dL (9.8-20.1); Bilirubin, Total 0.9 mg/dL (0.3-1.2); Calc. Creatinine Clearance 158 mL/min (70-130); Calcium 9.2 mg/dL (7.8-10.44); Carbon Dioxide 28 mmol/L (23-31); Chloride 98 mmol/L (98-107); Globulin 3.9 g/dL (2.4-3.5); Glucose 107 mg/dL (83-110); Potassium 3.1 mmol/L (3.5-5.1); Sodium 135 mmol/L (136-145)
[2025-05-03] MEDS: Potassium Chloride 20 MEQ in Premix 1 BAG IVPB SCH (06:16)
[2025-05-03] MEDS ORDERED: PROPOFOL 20 ML ONE (11:18)
[2025-05-03] MEDS ORDERED: fentaNYL PF 100 MCG/2 ML SYRINGE ONE (11:18)
[2025-05-03] MEDS ORDERED: Lidocaine 1% PF 5 ML VIAL ONE (11:19)
[2025-05-03] MEDS ORDERED: Rocuronium Bromide 10 MG/ML (10ML VIAL) ONE (11:19)
[2025-05-03 14:14] LABS: Actual Bicarbonate (HCO3a) 23.3 mEq/L (22-28); Base Excess (BEa) 1.0 mEq/L (-2.0 to +3.0); CO2 Tension 30.8 mmHg (35.0-45.0); Calcium, Ionized (arterial) 1.19 mmol/L (1.12-1.30); Hematocrit-ABG 43 % (36.0-47.0); Hemoglobin (Hb) 14.6 g/dL (12.0-16.0); O2 Tension (PaO2), arterial 71.8 mmHg (> 70.0); Potassium - ABG Lab 3.41 mmol/L (3.70-5.30); pH, Arterial 7.496 (7.35-7.45)
[2025-05-03 14:15] LABS: Puncture Site ART LINE
[2025-05-03 14:20] LABS: ALV-art Gradient 246.200 mmHg (0-20)
[2025-05-03] MEDS ORDERED: Fentanyl BOLUS 100 ML IVPB PRN (14:30)
[2025-05-03] MEDS ORDERED: Propofol BOLUS 1,000 MG/100 ML VIAL IV PRN (14:30)
[2025-05-03 15:02] LABS: O2 Tension (PaO2), arterial 50.4 mmHg (> 70.0)
[2025-05-04 04:26] LABS: #Basophils 0.03 10x3/uL (0.0-0.2); #Eosinophils 0.12 10x3/uL (0.0-0.7); #Monocytes 0.91 10x3/uL (0.11-0.59); #Neutrophils 9.91 10x3/uL (1.40-6.50); %Basophils 0.2 % (0.0-1.0); %Eosinophils 1.0 % (0.0-10.0); %Lymphocytes 9.2 % (21.0-51.0); %Monocytes 7.4 % (0.0-10.0); %Neutrophils 80.3 % (42.0-75.0); Hematocrit 31.3 % (36.0-47.0); Hemoglobin 10.5 g/dL (12.0-16.0); Mean Corpuscular Hemoglobin 29.7 pg (27.0-31.0); Mean Corpuscular Volume 88.7 fL (78.0-98.0); Platelet Count 326 10x3/uL (130-400); Red Blood Cell (RBC) Count 3.53 mill/uL (4.20-5.40); White Blood Cell (WBC) Count 12.34 10x3/uL (4.8-10.8)
[2025-05-04 05:08] LABS: Anion Gap 10 mmol/L (10-20); BUN (Urea Nitrogen) 8 mg/dL (9.8-20.1); Calc. Creatinine Clearance 161 mL/min (70-130); Calcium 8.6 mg/dL (7.8-10.44); Carbon Dioxide 24 mmol/L (23-31); Chloride 101 mmol/L (98-107); Glucose 116 mg/dL (83-110); Potassium 3.3 mmol/L (3.5-5.1); Sodium 132 mmol/L (136-145)
[2025-05-04] MEDS: Potassium Chloride 20 MEQ in Premix 1 BAG IVPB SCH (08:19)
[2025-05-04] MEDS: Ketorolac Tromethamine 30 MG (1 mL) VIAL IVP SCH (10:23)
[2025-05-04] MEDS: oxyCODONE 5 MG TAB PO PRN (10:46)
[2025-05-04] MEDS: D5W-AA 4.25% with LYTES 1,000 ML IV SCH (11:32)
[2025-05-04] MEDS: Bisacodyl 10 MG SUPP PR PRN (14:36)
[2025-05-04] MEDS: Enoxaparin 40 MG (0.4 mL) SYRINGE SC SCH (20:55)
[2025-05-05 04:46] LABS: #Basophils 0.03 10x3/uL (0.0-0.2); #Eosinophils 0.18 10x3/uL (0.0-0.7); #Monocytes 0.81 10x3/uL (0.11-0.59); #Neutrophils 8.92 10x3/uL (1.40-6.50); %Basophils 0.3 % (0.0-1.0); %Eosinophils 1.6 % (0.0-10.0); %Lymphocytes 10.3 % (21.0-51.0); %Monocytes 7.1 % (0.0-10.0); %Neutrophils 78.4 % (42.0-75.0); Hematocrit 32.4 % (36.0-47.0); Hemoglobin 10.5 g/dL (12.0-16.0); Mean Corpuscular Hemoglobin 29.2 pg (27.0-31.0); Mean Corpuscular Volume 90.3 fL (78.0-98.0); Platelet Count 346 10x3/uL (130-400); Red Blood Cell (RBC) Count 3.59 mill/uL (4.20-5.40); White Blood Cell (WBC) Count 11.37 10x3/uL (4.8-10.8)
[2025-05-05 05:22] LABS: Anion Gap 11 mmol/L (10-20); BUN (Urea Nitrogen) 14 mg/dL (9.8-20.1); Calc. Creatinine Clearance 164 mL/min (70-130); Calcium 9.0 mg/dL (7.8-10.44); Carbon Dioxide 26 mmol/L (23-31); Chloride 105 mmol/L (98-107); Glucose 113 mg/dL (83-110); Potassium 3.6 mmol/L (3.5-5.1); Sodium 138 mmol/L (136-145)
[2025-05-06 04:30] LABS: #Basophils 0.04 10x3/uL (0.0-0.2); #Eosinophils 0.14 10x3/uL (0.0-0.7); #Monocytes 0.88 10x3/uL (0.11-0.59); #Neutrophils 8.86 10x3/uL (1.40-6.50); %Basophils 0.4 % (0.0-1.0); %Eosinophils 1.3 % (0.0-10.0); %Lymphocytes 9.1 % (21.0-51.0); %Monocytes 7.9 % (0.0-10.0); %Neutrophils 79.2 % (42.0-75.0); Hematocrit 35.4 % (36.0-47.0); Hemoglobin 11.4 g/dL (12.0-16.0); Mean Corpuscular Hemoglobin 28.6 pg (27.0-31.0); Mean Corpuscular Volume 88.7 fL (78.0-98.0); Platelet Count 392 10x3/uL (130-400); Red Blood Cell (RBC) Count 3.99 mill/uL (4.20-5.40); White Blood Cell (WBC) Count 11.18 10x3/uL (4.8-10.8)
[2025-05-06 04:49] LABS: Anion Gap 12 mmol/L (10-20); BUN (Urea Nitrogen) 15 mg/dL (9.8-20.1); Calc. Creatinine Clearance 167 mL/min (70-130); Calcium 9.5 mg/dL (7.8-10.44); Carbon Dioxide 27 mmol/L (23-31); Chloride 100 mmol/L (98-107); Glucose 114 mg/dL (83-110); Potassium 3.7 mmol/L (3.5-5.1); Sodium 135 mmol/L (136-145)
[2025-05-07] MEDS: Milk Of Magnesia 30 ML UDCUP PO SCH (05:55)
[2025-05-08 06:28] LABS: #Basophils 0.03 10x3/uL (0.0-0.2); #Eosinophils 0.13 10x3/uL (0.0-0.7); #Monocytes 1.29 10x3/uL (0.11-0.59); #Neutrophils 5.61 10x3/uL (1.40-6.50); %Basophils 0.4 % (0.0-1.0); %Eosinophils 1.6 % (0.0-10.0); %Lymphocytes 13.8 % (21.0-51.0); %Monocytes 15.4 % (0.0-10.0); %Neutrophils 67.0 % (42.0-75.0); Hematocrit 39.5 % (36.0-47.0); Hemoglobin 12.6 g/dL (12.0-16.0); Mean Corpuscular Hemoglobin 29.1 pg (27.0-31.0); Mean Corpuscular Volume 91.2 fL (78.0-98.0); Platelet Count 358 10x3/uL (130-400); Red Blood Cell (RBC) Count 4.33 mill/uL (4.20-5.40); White Blood Cell (WBC) Count 8.36 10x3/uL (4.8-10.8)
[2025-05-08 06:44] LABS: Anion Gap 14 mmol/L (10-20); Calc. Creatinine Clearance 159 mL/min (70-130); Calcium 9.8 mg/dL (7.8-10.44); Carbon Dioxide 23 mmol/L (23-31); Chloride 100 mmol/L (98-107); Glucose 106 mg/dL (83-110); Potassium 4.1 mmol/L (3.5-5.1); Sodium 133 mmol/L (136-145)
[2025-05-08 07:05] LABS: BUN (Urea Nitrogen) 17 mg/dL (9.8-20.1)
[2025-05-10] MEDS: Milk Of Magnesia 30 ML UDCUP PO SCH (06:17)
[2025-05-11 05:20] LABS: #Basophils 0.03 10x3/uL (0.0-0.2); #Eosinophils 0.09 10x3/uL (0.0-0.7); #Monocytes 1.12 10x3/uL (0.11-0.59); #Neutrophils 10.72 10x3/uL (1.40-6.50); %Basophils 0.2 % (0.0-1.0); %Eosinophils 0.7 % (0.0-10.0); %Lymphocytes 10.3 % (21.0-51.0); %Monocytes 8.3 % (0.0-10.0); %Neutrophils 79.8 % (42.0-75.0); Hematocrit 32.9 % (36.0-47.0); Hemoglobin 10.5 g/dL (12.0-16.0); Mean Corpuscular Hemoglobin 28.5 pg (27.0-31.0); Mean Corpuscular Volume 89.2 fL (78.0-98.0); Platelet Count 516 10x3/uL (130-400); Red Blood Cell (RBC) Count 3.69 mill/uL (4.20-5.40); White Blood Cell (WBC) Count 13.43 10x3/uL (4.8-10.8)
[2025-05-11 05:38] LABS: Anion Gap 12 mmol/L (10-20); BUN (Urea Nitrogen) 18 mg/dL (9.8-20.1); Calc. Creatinine Clearance 147 mL/min (70-130); Calcium 9.5 mg/dL (7.8-10.44); Carbon Dioxide 25 mmol/L (23-31); Chloride 100 mmol/L (98-107); Glucose 144 mg/dL (83-110); Potassium 4.4 mmol/L (3.5-5.1); Sodium 133 mmol/L (136-145)
[2025-05-11] MEDS ORDERED: Etomidate 40 MG (20 mL) VIAL ONE (06:05)
[2025-05-11] MEDS: Etomidate 40 MG (20 mL) VIAL IVP SCH ×2 (06:19→07:00)
[2025-05-11] MEDS: NOREPINEPHRINE 8 MG/250 ML-D5W 250 ML IVPB SCH (07:00)
[2025-05-11] MEDS: Vasopressin In 0.9 % NaCl 40 UNIT in Premix 1 BAG IV SCH (07:15)
[2025-05-11] MEDS: NOREPINEPHRINE 8 MG/250 ML-D5W 250 ML ONE (07:40)
[2025-05-11] MEDS: Rocuronium Bromide 10 MG/ML (10ML VIAL) ONE (07:40)
[2025-05-11] MEDS: Etomidate 40 MG (20 mL) VIAL ONE (07:40)
[2025-05-11] MEDS: Vasopressin In 0.9 % NaCl 100 ML ONE (08:00)
[2025-05-11] MEDS ORDERED: Fentanyl BOLUS 100 ML IVPB PRN (08:30)
[2025-05-11] MEDS ORDERED: Propofol BOLUS 1,000 MG/100 ML VIAL IV PRN (08:30)
[2025-05-11] MEDS ORDERED: DISCONTINUE PREVIOUS NARCOTIC PAIN MEDICATIONS AND BENZODIAZEPINES FS SCH (08:30)
[2025-05-11 08:39] LABS: Base Excess (BEa) -14.8 mEq/L (-2.0 to +3.0); Calcium, Ionized (arterial) 1.28 mmol/L (1.12-1.30); Hematocrit-ABG 31 % (36.0-47.0); Hemoglobin (Hb) 10.6 g/dL (12.0-16.0); O2 Tension (PaO2), arterial 206.5 mmHg (> 70.0); Potassium - ABG Lab 5.25 mmol/L (3.70-5.30); pH, Arterial 7.259 (7.35-7.45)
[2025-05-11 08:42] LABS: ALV-art Gradient 476.250 mmHg (0-20); Actual Bicarbonate (HCO3a) 10.6 mEq/L (22-28); CO2 Tension 24.2 mmHg (35.0-45.0); Puncture Site Arterial Line
[2025-05-11] MEDS: Sodium Bicarb 50 MEQ/50 ML Abboject 8.4% SYRINGE IVP SCH (08:44)
[2025-05-11] MEDS: Sodium Bicarb 50 MEQ/50 ML Abboject 8.4% SYRINGE ONE (08:48)
[2025-05-11 08:54] LABS: ALT (SGPT) 53 U/L (Less than 34); AST (SGOT) 82 U/L (11-34); Albumin 2.1 g/dL (3.1-4.5); Alkaline Phosphatase 259 U/L (40-110); Anion Gap 23 mmol/L (10-20); BUN (Urea Nitrogen) 22 mg/dL (9.8-20.1); Bilirubin, Total 0.6 mg/dL (0.3-1.2); Calc. Creatinine Clearance 72 mL/min (70-130); Calcium 8.9 mg/dL (7.8-10.44); Carbon Dioxide 10 mmol/L (23-31); Chloride 103 mmol/L (98-107); Globulin 4.1 g/dL (2.4-3.5); Glucose 219 mg/dL (83-110); Potassium 4.9 mmol/L (3.5-5.1); Sodium 131 mmol/L (136-145)
[2025-05-11] MEDS: Albumin 25% 25 GM (100 mL) BOT IVPB SCH ×2 (09:25→16:25)
[2025-05-11 12:19] LABS: Anion Gap 22 mmol/L (10-20); BUN (Urea Nitrogen) 22 mg/dL (9.8-20.1); Calc. Creatinine Clearance 80 mL/min (70-130); Calcium 8.9 mg/dL (7.8-10.44); Carbon Dioxide 13 mmol/L (23-31); Chloride 104 mmol/L (98-107); Glucose 115 mg/dL (83-110); Potassium 4.4 mmol/L (3.5-5.1); Sodium 135 mmol/L (136-145)
[2025-05-11] MEDS: Acetaminophen 325 MG TAB PER TUBE SCH (12:59)
[2025-05-11] MEDS: Hydrocortisone Sod Succ/PF 100 mg/2 ml Vial IVP SCH ×2 (13:01→17:43)
[2025-05-11] MEDS ORDERED: Famotidine 20 MG TAB PER TUBE SCH (21:00)
[2025-05-12 04:25] LABS: Anion Gap 12 mmol/L (10-20); BUN (Urea Nitrogen) 47 mg/dL (9.8-20.1); Calc. Creatinine Clearance 52 mL/min (70-130); Calcium 8.6 mg/dL (7.8-10.44); Carbon Dioxide 20 mmol/L (23-31); Chloride 107 mmol/L (98-107); Glucose 120 mg/dL (83-110); Potassium 4.1 mmol/L (3.5-5.1); Sodium 135 mmol/L (136-145)
[2025-05-12 04:40] LABS: #Basophils Less than 0.03 10x3/uL (0.0-0.2); #Eosinophils Less than 0.03 10x3/uL (0.0-0.7); #Monocytes 0.60 10x3/uL (0.11-0.59); #Neutrophils 12.14 10x3/uL (1.40-6.50); %Basophils 0.1 % (0.0-1.0); %Eosinophils 0.0 % (0.0-10.0); %Lymphocytes 9.2 % (21.0-51.0); %Monocytes 4.2 % (0.0-10.0); %Neutrophils 85.4 % (42.0-75.0); Hematocrit 15.6 % (36.0-47.0); Hemoglobin 5.2 g/dL (12.0-16.0); Mean Corpuscular Hemoglobin 29.2 pg (27.0-31.0); Mean Corpuscular Volume 87.6 fL (78.0-98.0); Platelet Count 247 10x3/uL (130-400); Red Blood Cell (RBC) Count 1.78 mill/uL (4.20-5.40); White Blood Cell (WBC) Count 14.23 10x3/uL (4.8-10.8)
[2025-05-12 04:58] LABS: Anion Gap 13 mmol/L (10-20); BUN (Urea Nitrogen) 47 mg/dL (9.8-20.1); Calc. Creatinine Clearance 53 mL/min (70-130); Calcium 8.6 mg/dL (7.8-10.44); Carbon Dioxide 21 mmol/L (23-31); Chloride 105 mmol/L (98-107); Glucose 116 mg/dL (83-110); Potassium 4.1 mmol/L (3.5-5.1); Sodium 135 mmol/L (136-145)
[2025-05-12 07:53] LABS: Actual Bicarbonate (HCO3a) 21.0 mEq/L (22-28); Base Excess (BEa) -2.0 mEq/L (-2.0 to +3.0); CO2 Tension 27.6 mmHg (35.0-45.0); Calcium, Ionized (arterial) 1.23 mmol/L (1.12-1.30); Hematocrit-ABG 17 % (36.0-47.0); O2 Tension (PaO2), arterial 94.6 mmHg (> 70.0); Potassium - ABG Lab 3.98 mmol/L (3.70-5.30); pH, Arterial 7.499 (7.35-7.45)
[2025-05-12 07:54] LABS: ALV-art Gradient 156.100 mmHg (0-20); Hemoglobin (Hb) 5.9 g/dL (12.0-16.0); Puncture Site Arterial Line
[2025-05-12] MEDS: Pantoprazole 40 MG VIAL IVP SCH (09:38)
[2025-05-12 13:40] LABS: Hematocrit 20.0 % (36.0-47.0); Hemoglobin 6.7 g/dL (12.0-16.0)
[2025-05-12 15:45] LABS: #Basophils Less than 0.03 10x3/uL (0.0-0.2); #Eosinophils Less than 0.03 10x3/uL (0.0-0.7); #Monocytes 0.59 10x3/uL (0.11-0.59); #Neutrophils 11.18 10x3/uL (1.40-6.50); %Basophils 0.2 % (0.0-1.0); %Eosinophils 0.0 % (0.0-10.0); %Lymphocytes 6.9 % (21.0-51.0); %Monocytes 4.6 % (0.0-10.0); %Neutrophils 87.2 % (42.0-75.0); Hematocrit 19.0 % (36.0-47.0); Hemoglobin 6.5 g/dL (12.0-16.0); Mean Corpuscular Hemoglobin 29.7 pg (27.0-31.0); Mean Corpuscular Volume 86.8 fL (78.0-98.0); Platelet Count 200 10x3/uL (130-400); Red Blood Cell (RBC) Count 2.19 mill/uL (4.20-5.40); White Blood Cell (WBC) Count 12.81 10x3/uL (4.8-10.8)
[2025-05-12 16:02] LABS: INR-International Normal Ratio 1.7; Prothrombin Time 19.8 sec (12.0-14.7)
[2025-05-12 16:06] LABS: Cardiac Risk 4.8 (Less than 4.5); Cholesterol 62 mg/dl (< 200 Desired); HDL Cholesterol 13 mg/dL (>60 Neg Risk); LDL Cholesterol, Calculated 31 mg/dL; Magnesium 2.2 mg/dL (1.6-2.6); Triglycerides 92 mg/dL (Less than 150)
[2025-05-13 03:52] LABS: #Basophils 0.03 10x3/uL (0.0-0.2); #Eosinophils Less than 0.03 10x3/uL (0.0-0.7); #Monocytes 1.02 10x3/uL (0.11-0.59); #Neutrophils 13.77 10x3/uL (1.40-6.50); %Basophils 0.2 % (0.0-1.0); %Eosinophils 0.0 % (0.0-10.0); %Lymphocytes 6.2 % (21.0-51.0); %Monocytes 6.3 % (0.0-10.0); %Neutrophils 84.6 % (42.0-75.0); Hematocrit 27.0 % (36.0-47.0); Hematocrit 27.3 % (36.0-47.0); Hemoglobin 9.0 g/dL (12.0-16.0); Hemoglobin 9.2 g/dL (12.0-16.0); Mean Corpuscular Hemoglobin 29.6 pg (27.0-31.0); Mean Corpuscular Volume 86.8 fL (78.0-98.0); Platelet Count 224 10x3/uL (130-400); Platelet Count 225 10x3/uL (130-400); Red Blood Cell (RBC) Count 3.11 mill/uL (4.20-5.40); White Blood Cell (WBC) Count 16.27 10x3/uL (4.8-10.8)
[2025-05-13 04:05] LABS: Anion Gap 11 mmol/L (10-20); BUN (Urea Nitrogen) 50 mg/dL (9.8-20.1); Calc. Creatinine Clearance 64 mL/min (70-130); Calcium 9.2 mg/dL (7.8-10.44); Carbon Dioxide 21 mmol/L (23-31); Chloride 105 mmol/L (98-107); Glucose 96 mg/dL (83-110); Potassium 4.2 mmol/L (3.5-5.1); Sodium 133 mmol/L (136-145)
[2025-05-13 08:08] LABS: Actual Bicarbonate (HCO3a) 20.2 mEq/L (22-28); Base Excess (BEa) -4.2 mEq/L (-2.0 to +3.0); CO2 Tension 34.2 mmHg (35.0-45.0); Calcium, Ionized (arterial) 1.31 mmol/L (1.12-1.30); Hematocrit-ABG 29 % (36.0-47.0); Hemoglobin (Hb) 9.7 g/dL (12.0-16.0); O2 Tension (PaO2), arterial 74.7 mmHg (> 70.0); Potassium - ABG Lab 4.41 mmol/L (3.70-5.30); pH, Arterial 7.389 (7.35-7.45)
[2025-05-13 08:09] LABS: ALV-art Gradient 167.750 mmHg (0-20); Puncture Site Arterial Line
[2025-05-13] MEDS ORDERED: Iopamidol-370 76% 500 ML MDV (1 ML CHARGE) ONE (09:22)
[2025-05-13] MEDS ORDERED: GASTROGRAFIN 30 ML BOT ONE (09:22)
[2025-05-13] MEDS: Furosemide 40 MG (4 mL) VIAL SLOW IVP SCH (09:32)
[2025-05-13] MEDS: SODIUM ACETATE IV SCH (12:31)
[2025-05-13] MEDS: SODIUM CHLORIDE IV SCH (12:31)
[2025-05-13] MEDS: POTASSIUM ACETATE IV SCH (12:31)
[2025-05-13] MEDS: [UNRECOGNIZED DRUG - OTHER] IV SCH (12:31)
[2025-05-13] MEDS: Hydrocortisone Sod Succ/PF 100 mg/2 ml Vial IVP SCH (21:08)
[2025-05-14 04:30] LABS: #Basophils Less than 0.03 10x3/uL (0.0-0.2); #Eosinophils Less than 0.03 10x3/uL (0.0-0.7); #Monocytes 0.70 10x3/uL (0.11-0.59); #Neutrophils 9.00 10x3/uL (1.40-6.50); %Basophils 0.2 % (0.0-1.0); %Eosinophils 0.0 % (0.0-10.0); %Lymphocytes 9.0 % (21.0-51.0); %Monocytes 6.5 % (0.0-10.0); %Neutrophils 83.1 % (42.0-75.0); Hematocrit 24.8 % (36.0-47.0); Hemoglobin 8.1 g/dL (12.0-16.0); Mean Corpuscular Hemoglobin 29.0 pg (27.0-31.0); Mean Corpuscular Volume 88.9 fL (78.0-98.0); Platelet Count 208 10x3/uL (130-400); Red Blood Cell (RBC) Count 2.79 mill/uL (4.20-5.40); White Blood Cell (WBC) Count 10.82 10x3/uL (4.8-10.8)
[2025-05-14 04:49] LABS: Anion Gap 11 mmol/L (10-20); BUN (Urea Nitrogen) 45 mg/dL (9.8-20.1); Calc. Creatinine Clearance 94 mL/min (70-130); Calcium 8.9 mg/dL (7.8-10.44); Carbon Dioxide 22 mmol/L (23-31); Chloride 110 mmol/L (98-107); Glucose 155 mg/dL (83-110); Potassium 4.2 mmol/L (3.5-5.1); Sodium 139 mmol/L (136-145)
[2025-05-14 08:16] LABS: Magnesium 2.0 mg/dL (1.6-2.6)
[2025-05-14] MEDS: Magnesium 2 GM/50 ML(in water) 2 GM in Premix 1 BAG IVPB SCH (09:07)
[2025-05-14] MEDS: hydrALAZINE 20 MG/ML VIAL SLOW IVP PRN (11:30)
[2025-05-15 04:44] LABS: #Basophils Less than 0.03 10x3/uL (0.0-0.2); #Eosinophils Less than 0.03 10x3/uL (0.0-0.7); #Monocytes 0.61 10x3/uL (0.11-0.59); #Neutrophils 6.67 10x3/uL (1.40-6.50); %Basophils 0.1 % (0.0-1.0); %Eosinophils 0.1 % (0.0-10.0); %Lymphocytes 14.4 % (21.0-51.0); %Monocytes 7.1 % (0.0-10.0); %Neutrophils 77.4 % (42.0-75.0); Hematocrit 27.0 % (36.0-47.0); Hemoglobin 8.8 g/dL (12.0-16.0); Mean Corpuscular Hemoglobin 29.0 pg (27.0-31.0); Mean Corpuscular Volume 89.1 fL (78.0-98.0); Platelet Count 209 10x3/uL (130-400); Red Blood Cell (RBC) Count 3.03 mill/uL (4.20-5.40); White Blood Cell (WBC) Count 8.62 10x3/uL (4.8-10.8)
[2025-05-15 05:16] LABS: Magnesium 2.1 mg/dL (1.6-2.6)
[2025-05-15] MEDS: PHOS-NAK 1 PKT PACK PO SCH (08:27)
[2025-05-15] MEDS ORDERED: DC Sedation Protocol FS SCH (20:25)
[2025-05-16] MEDS: Acetaminophen 325 MG TAB PO SCH (00:31)
[2025-05-16 02:54] LABS: #Basophils Less than 0.03 10x3/uL (0.0-0.2); #Eosinophils 0.07 10x3/uL (0.0-0.7); #Monocytes 1.15 10x3/uL (0.11-0.59); #Neutrophils 7.92 10x3/uL (1.40-6.50); %Basophils 0.2 % (0.0-1.0); %Eosinophils 0.6 % (0.0-10.0); %Lymphocytes 17.1 % (21.0-51.0); %Monocytes 10.2 % (0.0-10.0); %Neutrophils 70.7 % (42.0-75.0); Hematocrit 29.9 % (36.0-47.0); Hemoglobin 9.7 g/dL (12.0-16.0); Mean Corpuscular Hemoglobin 28.9 pg (27.0-31.0); Mean Corpuscular Volume 89.0 fL (78.0-98.0); Platelet Count 277 10x3/uL (130-400); Red Blood Cell (RBC) Count 3.36 mill/uL (4.20-5.40); White Blood Cell (WBC) Count 11.22 10x3/uL (4.8-10.8)
[2025-05-16 08:37] LABS: Anion Gap 11 mmol/L (10-20); BUN (Urea Nitrogen) 28 mg/dL (9.8-20.1); Calc. Creatinine Clearance 153 mL/min (70-130); Calcium 9.3 mg/dL (7.8-10.44); Carbon Dioxide 27 mmol/L (23-31); Chloride 111 mmol/L (98-107); Glucose 123 mg/dL (83-110); Potassium 3.5 mmol/L (3.5-5.1); Sodium 145 mmol/L (136-145)
[2025-05-16] MEDS: Hydrocortisone Sod Succ/PF 100 mg/2 ml Vial IVP SCH (08:48)
[2025-05-16] MEDS: Potassium Chloride 20 MEQ in Premix 1 BAG IVPB SCH (09:51)
[2025-05-16] MEDS: Losartan 25 MG TAB PO SCH (16:44)
[2025-05-16] MEDS: NIFEdipine XL 60 MG ER.TAB PO SCH (16:44)
[2025-05-17 06:40] LABS: Hematocrit 28.3 % (36.0-47.0); Hemoglobin 9.1 g/dL (12.0-16.0); Mean Corpuscular Hemoglobin 28.8 pg (27.0-31.0); Mean Corpuscular Volume 89.6 fL (78.0-98.0); Platelet Count 257 10x3/uL (130-400); Red Blood Cell (RBC) Count 3.16 mill/uL (4.20-5.40); White Blood Cell (WBC) Count 9.99 10x3/uL (4.8-10.8)
[2025-05-17 07:03] LABS: ALT (SGPT) 61 U/L (Less than 34); AST (SGOT) 27 U/L (11-34); Albumin 2.6 g/dL (3.1-4.5); Alkaline Phosphatase 109 U/L (40-110); Anion Gap 11 mmol/L (10-20); BUN (Urea Nitrogen) 28 mg/dL (9.8-20.1); Bilirubin, Total 0.7 mg/dL (0.3-1.2); Calc. Creatinine Clearance 174 mL/min (70-130); Calcium 8.9 mg/dL (7.8-10.44); Carbon Dioxide 24 mmol/L (23-31); Chloride 108 mmol/L (98-107); Globulin 3.0 g/dL (2.4-3.5); Glucose 132 mg/dL (83-110); Magnesium 1.8 mg/dL (1.6-2.6); Potassium 3.4 mmol/L (3.5-5.1); Sodium 140 mmol/L (136-145)
[2025-05-17] MEDS: NIFEdipine XL 60 MG ER.TAB PO SCH (07:59)
[2025-05-17] MEDS: Losartan 25 MG TAB PO SCH (07:59)
[2025-05-17] MEDS: Magnesium 2 GM/50 ML(in water) 2 GM in Premix 1 BAG IVPB SCH (10:11)
[2025-05-17] MEDS: Potassium Chloride 20 MEQ in Premix 1 BAG IVPB SCH (11:26)
[2025-05-17] MEDS: Multivitamins, Adult 10 ML, TRACE ELEMENT CONCENTRATE 1 ML in D15W-AA 5% with Lytes 2,0... IV SCH (16:16)
[2025-05-18 06:18] LABS: ALT (SGPT) 46 U/L (Less than 34); AST (SGOT) 22 U/L (11-34); Albumin 2.8 g/dL (3.1-4.5); Alkaline Phosphatase 119 U/L (40-110); Anion Gap 12 mmol/L (10-20); BUN (Urea Nitrogen) 22 mg/dL (9.8-20.1); Bilirubin, Total 0.8 mg/dL (0.3-1.2); Calc. Creatinine Clearance 189 mL/min (70-130); Calcium 9.0 mg/dL (7.8-10.44); Carbon Dioxide 24 mmol/L (23-31); Chloride 106 mmol/L (98-107); Globulin 3.5 g/dL (2.4-3.5); Glucose 109 mg/dL (83-110); Magnesium 1.9 mg/dL (1.6-2.6); Potassium 3.7 mmol/L (3.5-5.1); Sodium 138 mmol/L (136-145)
[2025-05-18] MEDS: Magnesium 2 GM/50 ML(in water) 2 GM in Premix 1 BAG IVPB SCH (06:55)
[2025-05-18 07:46] LABS: Hematocrit 32.7 % (36.0-47.0); Hemoglobin 10.3 g/dL (12.0-16.0); Mean Corpuscular Hemoglobin 28.1 pg (27.0-31.0); Mean Corpuscular Volume 89.3 fL (78.0-98.0); Platelet Count 350 10x3/uL (130-400); Red Blood Cell (RBC) Count 3.66 mill/uL (4.20-5.40); White Blood Cell (WBC) Count 10.90 10x3/uL (4.8-10.8)
[2025-05-19 05:56] LABS: Anion Gap 15 mmol/L (10-20); BUN (Urea Nitrogen) 24 mg/dL (9.8-20.1); Calc. Creatinine Clearance 163 mL/min (70-130); Calcium 9.8 mg/dL (7.8-10.44); Carbon Dioxide 23 mmol/L (23-31); Chloride 106 mmol/L (98-107); Glucose 111 mg/dL (83-110); Magnesium 2.0 mg/dL (1.6-2.6); Potassium 3.6 mmol/L (3.5-5.1); Sodium 140 mmol/L (136-145)
[2025-05-19] MEDS: Magnesium 2 GM/50 ML(in water) 2 GM in Premix 1 BAG IVPB SCH (06:49)
[2025-05-19] MEDS: Lidocaine 2% 6 ML (Jelly) SYR TOP SCH (15:34)
[2025-05-20 07:56] LABS: Magnesium 1.9 mg/dL (1.6-2.6); Magnesium 2.0 mg/dL (1.6-2.6)
[2025-05-20] MEDS: Magnesium 2 GM/50 ML(in water) 2 GM in Premix 1 BAG IVPB SCH (10:12)
[2025-05-21 05:51] LABS: Hematocrit 29.9 % (36.0-47.0); Hemoglobin 9.5 g/dL (12.0-16.0); Mean Corpuscular Hemoglobin 28.5 pg (27.0-31.0); Mean Corpuscular Volume 89.8 fL (78.0-98.0); Platelet Count 305 10x3/uL (130-400); Red Blood Cell (RBC) Count 3.33 mill/uL (4.20-5.40); White Blood Cell (WBC) Count 8.85 10x3/uL (4.8-10.8)
[2025-05-21 06:00] LABS: Anion Gap 12 mmol/L (10-20); BUN (Urea Nitrogen) 23 mg/dL (9.8-20.1); Calc. Creatinine Clearance 164 mL/min (70-130); Calcium 9.6 mg/dL (7.8-10.44); Carbon Dioxide 25 mmol/L (23-31); Chloride 106 mmol/L (98-107); Glucose 89 mg/dL (83-110); Potassium 4.1 mmol/L (3.5-5.1); Sodium 139 mmol/L (136-145)
[2025-05-24 16:46] VITALS: BMI 51.4
[2025-05-26 06:31] VITALS: BMI 49.4
[2025-05-26 09:46] VITALS: BP 156/82; TEMP 98.6
== END 2025-05-26 10:40 | disposition short-term general hospital (02) | DRG 353 ==
LOC: SURG A 04-26 10:25 → EDSTATUS 04-26 13:30 → SURG A 04-26 18:12 → CCU 05-01 20:25 → SURG B 05-06 15:31 → CCU 05-11 06:14 → IMCU/EMU 05-17 20:05 → SURG A 05-19 16:41
PROVIDERS: ADMIT Surgery; ATTEND Surgery
PROC: 0WUF0JZ Supplement Abdominal Wall with Synthetic Substitute, Open Approach (ICD-10-PCS; principal; 2025-04-26)
PROC: 3E033XZ Introduction of Vasopressor into Peripheral Vein, Percutaneous Approach (ICD-10-PCS; 2025-04-26)
PROC: 4A133R1 Monitoring of Arterial Saturation, Peripheral, Percutaneous Approach (ICD-10-PCS; 2025-05-01)
PROC: 05HN33Z Insertion of Infusion Device into Left Internal Jugular Vein, Percutaneous Approach (ICD-10-PCS; 2025-05-11)
PROC: 0BH17EZ Insertion of Endotracheal Airway into Trachea, Via Natural or Artificial Opening (ICD-10-PCS; 2025-05-11)
PROC: 04HY32Z Insertion of Monitoring Device into Lower Artery, Percutaneous Approach (ICD-10-PCS; 2025-05-11)
PROC: 4A133B1 Monitoring of Arterial Pressure, Peripheral, Percutaneous Approach (ICD-10-PCS; 2025-05-11)
PROC: 4A133J1 Monitoring of Arterial Pulse, Peripheral, Percutaneous Approach (ICD-10-PCS; 2025-05-11)
PROC: 30233J1 Transfusion of Nonautologous Serum Albumin into Peripheral Vein, Percutaneous Approach (ICD-10-PCS; 2025-05-11)
PROC: 30233N1 Transfusion of Nonautologous Red Blood Cells into Peripheral Vein, Percutaneous Approach (ICD-10-PCS; 2025-05-12)
PROC: 5A09357 Assistance with Respiratory Ventilation, Less than 24 Consecutive Hours, Continuous Positive Airway Pressure (ICD-10-PCS; 2025-05-17)
DX: K43.9 Ventral hernia without obstruction or gangrene (principal); I46.9 Cardiac arrest, cause unspecified; J95.821 Acute postprocedural respiratory failure; R57.8 Other shock; K91.840 Postprocedural hemorrhage of a digestive system organ or structure following a digestive system procedure; N17.9 Acute kidney failure, unspecified; Z68.42 Body mass index [BMI] 45.0-49.9, adult; I97.89 Other postprocedural complications and disorders of the circulatory system, not elsewhere classified; E66.01 Morbid (severe) obesity due to excess calories; E87.6 Hypokalemia; I10 Essential (primary) hypertension; Z79.899 Other long term (current) drug therapy; Z88.8 Allergy status to other drugs, medicaments and biological substances; E78.5 Hyperlipidemia, unspecified; Z98.890 Other specified postprocedural states; Z86.711 Personal history of pulmonary embolism; D64.9 Anemia, unspecified
CPT/HCPCS: 36415; 36416; 36430; 71045; 71260; 74018; 74177; 80048; 80053; 80061; 82805; 83605; 83735; 83880; 84100; 84134; 85025; 85027; 85610; 86850; 86900; 86901; 87040; 87070; 87077; 87186; 87205; 93005; 93010; 94002; 94003; 94660; 97139; A6258; C1781; J0169; J0360; J0612; J0665; J1100; J1171; J1644; J1650; J1720; J1885; J1940; J2185; J2248; J2250; J2270; J2405; J2470; J2543; J2704; J3010; J3475; J3480; J3490; J7030; P9016; P9047; Q9963; Q9967

== ENCOUNTER 2025-07-19 11:54 | Outpatient (CLI) | payer MEDICARE | END 2025-07-19 11:55 | disposition home or self-care (01) | LOC: ULT 11:54 | PROVIDERS: ATTEND Family Medicine | DX: I26.99 Other pulmonary embolism without acute cor pulmonale (principal); M79.662 Pain in left lower leg; I82.412 Acute embolism and thrombosis of left femoral vein ==